=== PATIENT | female | born 1990 ===

== ENCOUNTER → 2018-02-02 17:08 | Emergency (ER) | payer OTHER ==
[2018-02-02 21:34] LABS: ABS Basophils 0.1 10^3/ul (0-0.2); ABS Eosinophils 0.1 10^3/ul (0-0.6); ABS Lymphocytes 2.7 10^3/ul (1.0-4.8); ABS Monocytes 0.7 10^3/ul (0-0.8); ABS Neutrophils 6.2 10^3/ul (1.5-7.7); ABS Nucleated RBC 0 10^3/ul; Eosinophil % 1.1 %; Hematocrit 41 % (35-47); Hemoglobin 13.3 g/dl (12.0-16.0); Lymphocyte % 27.4 %; Mean Corpuscular HGB Conc 33 g/dl (31-36); Mean Corpuscular Hemoglobin 29 pg (27-31); Mean Corpuscular Volume 88 fL (80-97); Mean Platelet Volume 7.7 fL (7.4-10.4); Nucleated Red Blood Cells % 0.1; Platelet Count 277 10^3/ul (150-450); Red Blood Count 4.62 10^6/ul (4.00-5.40); Red Cell Distribution Width 15 % (10.5-15); White Blood Count 9.7 10^3/ul (3.5-10.8)
[2018-02-02 21:42] LABS: INR 0.99 (0.77-1.02)
--- NOTE | 2018-02-02 22:08 | ED ---
GI/ HPI - HPI Summary HPI Summary: 27-year-old female presents with possible ecoptic. her LMP was December 21. has vaginal cramping past couple days. She denies any bleeding. No abdominal vaginal discharge. No urinary symptoms. She admits to some nausea but no vomiting. No fevers. No diarrhea or constipation. She states that she has multiple ultrasounds done due to not wanting the but they're unable to find sack so was sent here to rule out ectopic. She states she doesn' t have an appointment for [facility] till next week. She is leaving to go out of the country next week. - History of Current Complaint Chief Complaint: EDOBProblems Time Seen by Provider: 02/02/18 21:28 Stated Complaint: OB ISSUE Pain Intensity: 2 - Allergy/Home Medications Allergies/Adverse Reactions: Allergies Allergy/AdvReac Type Severity Reaction Status Date / Time No Known Allergies Allergy Verified 02/02/18 17:14 PMH/Surg Hx/FS Hx/Imm Hx Endocrine/Hematology History: Denies: Hx Anticoagulant Therapy Respiratory History: Denies: Hx Asthma Infectious Disease History: No Infectious Disease History: Denies: Traveled Outside the [place] in Last 30 Days - Family History Known Family History: Positive: Non-Contributory - Social History Alcohol Use: None Substance Use Type: Reports: None Smoking Status (MU): Never Smoked Tobacco Review of Systems Negative: Fever Negative: Chest Pain Negative: Shortness Of Breath Positive: Abdominal Pain, Nausea. Negative: Vomiting All Other Systems Reviewed And Are Negative: Yes Physical Exam Triage Information Reviewed: Yes Vital Signs On Initial Exam: Initial Vitals Temp Pulse Resp BP Pulse Ox 98.9 F 93 16 139/94 100 02/02/18 17:11 02/02/18 17:11 02/02/18 17:11 02/02/18 17:11 02/02/18 17:11 Vital Signs Reviewed: Yes Appearance: Positive: Well-Appearing Skin: Positive: Warm, Dry Head/Face: Positive: Normal Head/Face Inspection Eyes: Positive: Normal, Conjunctiva Clear ENT: Positive: Pharynx normal Respiratory/Lung Sounds: Positive: Clear to Auscultation, Breath Sounds Present Cardiovascular: Positive: Normal, RRR Abdomen Description: Positive: Nontender, Soft Bowel Sounds: Positive: Present Musculoskeletal: Positive: Normal Neurological: Positive: Normal Psychiatric: Positive: Normal Diagnostics - Vital Signs Vital Signs Temp Pulse Resp BP Pulse Ox 02/02/18 19:03 99.1 F 101 18 122/75 99 02/02/18 17:11 98.9 F 93 16 139/94 100 - Laboratory Lab Results: Lab Results 02/02/18 02/02/18 02/02/18 Range/Units 21:22 21:22 21:22 WBC 9.7 (3.5-10.8) 10^3/ul RBC 4.62 (4.00-5.40) 10^6/ul Hgb 13.3 (12.0-16.0) g/dl Hct 41 (35-47) % MCV 88 (80-97) fL MCH 29 (27-31) pg MCHC 33 (31-36) g/dl RDW 15 (10.5-15) % Plt Count 277 (150-450) 10^3/ul MPV 7.7 (7.4-10.4) fL Neut % (Auto) 63.6 % Lymph % (Auto) 27.4 % [place] % (Auto) 7.3 % Eos % (Auto) 1.1 % Baso % (Auto) 0.6 % Absolute Neuts (auto) 6.2 (1.5-7.7) 10^3/ul Absolute Lymphs (auto) 2.7 (1.0-4.8) 10^3/ul Absolute Monos (auto) 0.7 (0-0.8) 10^3/ul Absolute Eos (auto) 0.1 (0-0.6) 10^3/ul Absolute Basos (auto) 0.1 (0-0.2) 10^3/ul Absolute Nucleated RBC 0 10^3/ul Nucleated RBC % 0.1 INR (Anticoag Therapy) 0.99 (0.77-1.02) APTT 34.0 (26.0-36.3) seconds Sodium 136 (135-145) mmol/L Potassium 3.9 (3.5-5.0) mmol/L Chloride 105 (101-111) mmol/L Carbon Dioxide 26 (22-32) mmol/L Anion Gap 5 (2-11) mmol/L BUN 7 (6-24) mg/dL Creatinine 0.68 (0.51-0.95) mg/dL Est GFR ( Amer) 124.7 (>60) Est GFR (Non-Af Amer) 103.0 (>60) BUN/Creatinine Ratio 10.3 (8-20) Glucose 74 (70-100) mg/dL Calcium 9.3 (8.6-10.3) mg/dL Total Bilirubin 0.40 (0.2-1.0) mg/dL AST 14 (13-39) U/L ALT 10 (7-52) U/L Alkaline Phosphatase 46 (34-104) U/L Total Protein 7.0 (6.4-8.9) g/dL Albumin 4.6 (3.2-5.2) g/dL Globulin 2.4 (2-4) g/dL Albumin/Globulin Ratio 1.9 (1-3) Beta HCG, Quant 772.28 mIU/mL Blood Type 02/02/18 Range/Units 21:22 WBC (3.5-10.8) 10^3/ul RBC (4.00-5.40) 10^6/ul Hgb (12.0-16.0) g/dl Hct (35-47) % MCV (80-97) fL MCH (27-31) pg MCHC (31-36) g/dl RDW (10.5-15) % Plt Count (150-450) 10^3/ul MPV (7.4-10.4) fL Neut % (Auto) % Lymph % (Auto) % [place] % (Auto) % Eos % (Auto) % Baso % (Auto) % Absolute Neuts (auto) (1.5-7.7) 10^3/ul Absolute Lymphs (auto) (1.0-4.8) 10^3/ul Absolute Monos (auto) (0-0.8) 10^3/ul Absolute Eos (auto) (0-0.6) 10^3/ul Absolute Basos (auto) (0-0.2) 10^3/ul Absolute Nucleated RBC 10^3/ul Nucleated RBC % INR (Anticoag Therapy) (0.77-1.02) APTT (26.0-36.3) seconds Sodium (135-145) mmol/L Potassium (3.5-5.0) mmol/L Chloride (101-111) mmol/L Carbon Dioxide (22-32) mmol/L Anion Gap (2-11) mmol/L BUN (6-24) mg/dL Creatinine (0.51-0.95) mg/dL Est GFR ( Amer) (>60) Est GFR (Non-Af Amer) (>60) BUN/Creatinine Ratio (8-20) Glucose (70-100) mg/dL Calcium (8.6-10.3) mg/dL Total Bilirubin (0.2-1.0) mg/dL AST (13-39) U/L ALT (7-52) U/L Alkaline Phosphatase (34-104) U/L Total Protein (6.4-8.9) g/dL Albumin (3.2-5.2) g/dL Globulin (2-4) g/dL Albumin/Globulin Ratio (1-3) Beta HCG, Quant mIU/mL Blood Type A Positive Result Diagrams: 02/02/18 21:22 02/02/18 21:22 Lab Statement: Any lab studies that have been ordered have been reviewed, and results considered in the medical decision making process. - Ultrasound No standard instances Ultrasound Interpretation Completed By: Radiologist Summary of Ultrasound Findings: IMPRESSION: Probable very early intrauterine of about nearly 5 weeks. pole cardiac activity and are yet to be visualized. No suspicious adnexal masses or free fluid. Correlation with beta-hCG levels and follow up are recommended as an ectopic is. still in the differential. GIGU Course/Dx - Course Course Of Treatment: 27-year-old female presents with possible ecoptic. her LMP was December 21. has vaginal cramping past couple days. She denies any bleeding. No abdominal vaginal discharge. No urinary symptoms. She admits to some nausea but no vomiting. No fevers. No diarrhea or constipation. She states that she has multiple ultrasounds done due to not wanting the but they're unable to find sack so was sent here to rule out ectopic. She states she doesn't have an appointment for [facility]. She is leaving to go out of the country next week. On exam abdomen soft nontender. HCG is 778. Ultrasound shows likely an intrauterine that is early. Told to follow [facility] with [facility]. gave nausea medication. Patient understands agrees with plan. - Diagnoses Differential Diagnoses - Female: Ectopic , , Urinary Tract Infection Provider Diagnoses: Discharge - Sign-Out/Discharge Documenting (check all that apply): Patient Departure - Discharge Plan Condition: Good Disposition: HOME Prescriptions: Metoclopramide TAB* [Reglan TAB*] 5 mg PO Q6H PRN #20 tab PRN Reason: Nausea Vitamin TAB* 1 tab PO DAILY #30 tab Patient Education Materials: (ED) Referrals: No Primary Care Phys,NOPCP [facility] - Additional Instructions[facility] tyen[facility] every 6 hours as needed for pain Take reglan every 6 hours as needed for nausea Return to ED if develop any new or worsening symptoms - Billing Disposition and Condition Condition: GOOD Disposition: Home
[2018-02-02 22:21] VITALS: BP 115/62
== END | disposition home or self-care (01) ==
LOC: ED 17:08
DX: Z32.01 Encounter for pregnancy test, result positive (principal)
CPT/HCPCS: 36415; 76817; 80053; 84702; 85025; 85610; 85730; 86900; 86901; 99282

== ENCOUNTER 2018-05-19 19:29 | Emergency (ER) | payer OTHER ==
[2018-05-19 19:44] VITALS: BP 114/82
--- NOTE | 2018-05-19 20:12 | UC ---
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 STATES VISUAL SKAGGS WENT BLACK MOMENTARILY AND NOW ARE UNIFORMLY BLURRY. STATES SHE IS UNABLE TO FOCUS HER VISION. REPORTS A FAMILY HISTORY OF RETINAL ARTERY OCCLUSION. HAS A PERSONAL HISTORY OF WHAT SOUND LIKE TENSION HEADACHES THAT OCCUR EVERY FEW WEEKS. NO HISTORY OF MIGRAINES OR VISUAL DISTURBANCES WITH HER HEADACHES. - History of Current Complaint Chief Complaint: UCEye Stated Complaint: BLURRED VISION Time Seen by Provider: 05/19/18 19:46 Hx Obtained From: Patient Hx Last Menstrual Period: [id number] Onset/Duration: Sudden Onset, Lasting Minutes, Still Present Timing: Constant Severity Initially: Moderate Severity Currently: Moderate Pain Intensity: 2 Pain Scale Used: 0-10 Numeric Aggravating Factor(s): Nothing Alleviating Factor(s): Nothing Associated Signs And Symptoms: Positive: Vision Impairment Right, Vision Impairment Left. Negative: Drainage (Clear) - Allergies/Home Medications Allergies/Adverse Reactions: Allergies Allergy/AdvReac Type Severity Reaction Status Date / Time No Known Allergies Allergy Verified 05/19/18 19:44 Home Medications: Home Medications Amoxicillin PO (*) [Amoxicillin 875 MG (*)] 875 mg PO BID 05/19/18 [History Confirmed 05/19/18] PMH/Surg Hx/FS Hx/Imm Hx Previously Healthy: Yes Other History Of: Negative For: Anticoagulant Therapy - Surgical History Surgical History: None - Family History Family History: RETINAL ARTERY OCCLUSION - Social History Alcohol Use: None Substance Use Type: None Smoking Status (MU): Never Smoked Tobacco Review of Systems All Other Systems Reviewed And Are Negative: Yes Constitutional: Positive: Negative Eyes: Positive: Blurred Vision Respiratory: Positive: Negative Cardiovascular: Positive: Negative Gastrointestinal: Positive: Negative Neurological: Positive: Headache Physical Exam Triage Information Reviewed: Yes Appearance: Well-Appearing, No Pain Distress, Well-Nourished Vital Signs: Initial Vital Signs Temp 99.0 F 05/19/18 19:40 Pulse 63 05/19/18 19:40 Resp 16 05/19/18 19:40 BP 114/82 05/19/18 19:40 Pulse Ox 100 05/19/18 19:40 Vital Signs Reviewed: Yes Eyes: Positive: Conjunctiva Clear, Other: - PERRL, EOMI ENT: Positive: Hearing grossly normal, Pharynx normal, TMs normal Neck: Positive: Supple, Nontender, No Lymphadenopathy Respiratory Exam: Normal Cardiovascular Exam: Normal Abdomen Description: Positive: Soft Musculoskeletal: Positive: No Edema Neurological: Positive: Alert, Other: - CN II-XII GROSSLY INTACT BILATERALLY. RAPID ALTERNATING MOVEMENTS INTACT. NEG PRONATOR DRIFT. NEG ROMBERG. 5/5 STRENGTH. HEEL TO PEGUERO INTACT BILATERALLY. TANDEM GAIT INTACT. FINGER TO NOSE INTACT. 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 REPORTS PERSISTENT BLURRY VISION AND HEADACHE. HAS A FAMILY HISTORY OF RETINAL ARTERY OCCLUSION AND IS VERY CONCERNED ABOUT THIS. TO [facility] [place] ER FOR FURTHER EVALUATION. PATIENT WILL GO BY PRIVATE CAR. PT OFFERED TRANSPORT TO THE ED BY AMBULANCE BUT DECLINES. ADVISED THAT BY NOT TRAVELING IN A MONITORED SETTING SHE COULD BE RISKING WORSENING OF HER CONDITION THAT COULD POSE A THREAT TO HER LIFE, HEALTH AND MEDICAL SAFETY. SHE VERBALIZES UNDERSTANDING AND CONTINUES TO DECLINE AMBULANCE TRANSFER. - Differential Dx/Diagnosis Provider Diagnosis: Vision loss, bilateral, Headache Discharge - Sign-Out/Discharge Documenting (check all that apply): Patient Departure All imaging exams completed and their final reports reviewed: No Studies - Discharge Plan Condition: Stable Disposition: TRANS [facility]HER [facility] Patient Education Materials: Blurred Vision (ED), General Headache (ED) Referrals: No Primary Care Phys,NOPCP [Primary Care Provider] - Additional Instructions: GO DIRECTLY TO THE [facility] [place] ED FROM HERE FOR FURTHER EVALUATION. YOU HAVE DECLINED TRANSFER TO THE ED BY AMBULANCE. BE ADVISED THAT BY NOT TRAVELING IN A MONITORED SETTING YOU COULD BE RISKING WORSENING OF YOUR CONDITION THAT COULD POSE A THREAT TO YOUR LIFE, HEALTH AND MEDICAL SAFETY. - Billing Disposition and Condition Condition: STABLE Disposition: Trans Higher Lvl of Care Fac
== END 2018-05-19 20:00 | disposition short-term general hospital (02) ==
LOC: UCEAST 19:29
DX: H54.3 Unqualified visual loss, both eyes (principal); R51 Headache; Z83.518 Family history of other specified eye disorder
CPT/HCPCS: 99212; G0463

== ENCOUNTER 2019-04-23 12:18 | Emergency (ER) | payer OTHER ==
--- OUTSIDE RECORDS SUMMARY | 2019-04-23 12:22 | XMS REPORT | Summary of Care ---
:1990 Author Organization [facility] Address [address] [place] [address] Care Team Providers Name Role Phone Shyam Goff Primary Care Provider Reason for Visit Reason Comments New Patient Check Up physical Medication Check pt would like to change her Vanlafaxine Encounter Details Date Type Department Care Team Description 03/22/2019 Office Visit [facility] Shyam Goff, Anxiety and depression (Primary Dx); [facility] [address] [place] [address] [place] [address] [phone] Allergies No Known Allergiesdocumented as of this encounter (statuses as of 03/25/2019) Medications Medication Sig Dispensed Refills Start End Date Status Date Levonorgestrel by Intrauterine 0 Active (MIRENA, 52 MG,) route. 20 MCG/24HR Intrauterine IUD hydrOXYzine HCL Take 1 Tab by 30 Tab 0 Active (ATARAX) 10 MG mouth EVERY 9 Oral BEDTIME TabIndications: NEEDED Anxiety (anxiety). venlafaxine Take 1 Cap by 90 Cap 1 Active (EFFEXOR XR) 75 MG mouth DAILY. 0 Oral CAPSULE SR 24 HRIndications: Anxiety busPIRone HCl 7.5 Take 1 Tab by 120 Tab 0 Active MG Oral mouth TWICE 0 TabIndications: DAILY. Anxiety and depression venlafaxine Take 1 Cap by 90 Cap 1 03/22/19 Discontinued (EFFEXOR XR) 37.5 mouth DAILY. 9 20 (Other) MG Oral CAPSULE SR Start with 37.5 24 HRIndications: mg and 2 week Anxiety later add effexor 75 mg venlafaxine Take 1 Cap by 90 Cap 1 03/22/19 Discontinued (EFFEXOR XR) 75 MG mouth DAILY. 9 20 (Other) Oral CAPSULE SR 24 HRIndications: Anxiety venlafaxine Take 1 Cap by 90 Cap 1 03/22/19 Discontinued (EFFEXOR XR) 37.5 mouth DAILY. 0 20 (Other) MG Oral CAPSULE SR Start with 37.5 24 HRIndications: mg and 2 week Anxiety later add effexor 75 mg documented as of this encounter (statuses as of 03/25/2019) Active Problems Problem Noted Date Anxiety and depression 06/19/2017 documented as of this encounter (statuses as of 03/25/2019) Social History Tobacco Use Types Packs/Day Years Used Date Former Smoker Quit: 06/09/2016 Smokeless Tobacco: Never Used Alcohol Use Drinks/Week oz/Week Comments Yes Rarely Sex Assigned at Date Recorded Not on file Job Start Date Occupation Industry Not on file Not on file Not on file Travel History Travel Start Travel End No recent travel history available. documented as of this encounter Last Filed Vital Signs Vital Sign Reading Time Taken Comments Blood Pressure 118/86 03/22/2019 4:02 PM EST Pulse 67 03/22/2019 4:02 PM EST Temperature 37.3 03/22/2019 4:02 PM EST C (99.1 F) Respiratory Rate - - Oxygen Saturation 100% 03/22/2019 4:02 PM EST Inhaled Oxygen Concentration - - Weight 62.6 kg (138 lb) 03/22/2019 4:02 PM EST Height 170.2 cm (5' 7") 03/22/2019 4:02 PM EST Body Mass Index 21.61 03/22/2019 4:02 PM EST documented in this encounter Patient Instructions Patient InstructionsShyam Goff PA - 03/22/2019 4:00 PM ESTStart Buspirone twice per day. See me in 8 weeks. If you ever have thoughts of hurting yourself or others or have feelings of losing control, seek emergency room care immediately by ambulance. National Suicide Prevention Lifeline 4: 31 PM EST documented in this encounter Progress Notes Shyam Goff PA - 03/22/2019 4:00 PM EST PATIENT: Mike Norton : 1990 DATE OF SERVICE: 03/22/2019 CHIEF COMPLAINT: Chief Complaint Patient presents with New Patient Check Up physical Medication Check pt would like to change her Vanlafaxine Subjective HISTORY OF PRESENT ILLNESS: Mike Norton is a 28-y.o. female. Jigna presents to the office to establish with me and discuss medications. She currently complains of increased depression. She complains of depressed mood, feelings of worthlessness / guilt and hopelessness. Onset was approximately a few months ago, gradually worsening since that time. She denies current suicidal and homicidal plan or intent. Family history significant for nothing. Possible organic causes contributing are: none. Risk factors: previous episode of depression. Previous treatment includes SSRI and individual therapy. She complains of the following side effects from the treatment: none. She is currently taking hydroxyzine for sleep and Effexor for anxiety and depression. She is compliant with medications. Past Medical History: Diagnosis Date Anxiety Depression PCOS (polycystic ovarian syndrome) Family History Problem Relation Age of Onset Heart Father Cancer Maternal Grandmother Stomach Cancer Paternal Uncle Lung Cancer Maternal Uncle Lung Stroke Paternal Grandmother Current Outpatient Medications Medication Sig busPIRone HCl 7.5 MG Oral Tab Take 1 Tab by mouth TWICE DAILY. hydrOXYzine HCL (ATARAX) 10 MG Oral Tab Take 1 Tab by mouth EVERY BEDTIME NEEDED (anxiety). Levonorgestrel (MIRENA, 52 MG,) 20 MCG/24HR Intrauterine IUD by Intrauterine route. venlafaxine (EFFEXOR XR) 75 MG Oral CAPSULE SR 24 HR Take 1 Cap by mouth DAILY. No current facility-administered medications for this visit. No Known Allergies Social History Socioeconomic History Marital status: Single Spouse name: Not on file Number of children: Not on file Years of education: Not on file Highest education level: Not on file Occupational History Not on file Social Needs Financial resource strain: Not on file Food insecurity Worry: Not on file Inability: Not on file Transportation needs Medical: Not on file Non-medical: Not on file Tobacco Use Smoking status: Former Smoker Last attempt to quit: 06/09/2016 Years since quittin.7 Smokeless tobacco: Never Used Substance and Sexual Activity Alcohol use: Yes Comment: Rarely Drug use: No Sexual activity: Never Lifestyle Physical activity Days per week: Not on file Minutes per session: Not on file Stress: Not on file Relationships Social connections Talks on phone: Not on file Gets together: Not on file Attends buddhist service: Not on file Active member of club or organization: Not on file Attends meetings of clubs or organizations: Not on file Relationship status: Not on file Intimate partner violence Fear of current or ex partner: Not on file Emotionally abused: Not on file Physically abused: Not on file Forced sexual activity: Not on file Other Topics Concern Back Care Not Asked Bike Helmet Not Asked Blood Transfusions Not Asked Caffeine Concern Not Asked Exercise Not Asked Hobby Hazards Not Asked International Travel Not Asked Service Not Asked Occupational Exposure Not Asked Seat Belt Not Asked Self-Exams Not Asked Sleep Concern Not Asked Special Diet Not Asked Stress Concern Not Asked Weight Concern Not Asked Social History Narrative Work: coordinator event REVIEW OF SYSTEMS: Review of Systems Constitutional: Negative for chills, fever, malaise/fatigue and weight loss. HENT: Negative for congestion, ear pain, hearing loss, sore throat and tinnitus. Eyes: Negative for blurred vision, double vision and photophobia. Respiratory: Negative for cough, sputum production and shortness of breath. Cardiovascular: Negative for chest pain, palpitations, orthopnea and leg swelling. Gastrointestinal: Negative for abdominal pain, blood in stool, diarrhea and heartburn. Genitourinary: Negative for dysuria, flank pain and hematuria. Musculoskeletal: Negative for falls, joint pain and myalgias. Skin: Negative for itching and rash. Neurological: Negative for dizziness, sensory change, speech change, loss of consciousness and weakness. Endo/Heme/Allergies: Negative for environmental allergies and polydipsia. Does not bruise/bleed easily. Psychiatric/Behavioral: Positive for depression. Negative for substance abuse and suicidal ideas. The patient is nervous/anxious and has insomnia. Patient has history of suicidal thoughts, but none at this time. Objective PHYSICAL EXAM: VITALS: BP 118/86 (BP Location: Right arm, Patient Position: Sitting) | Pulse 67 | Temp 99.1 F (37.3 C) (Tympanic) | Ht 5' 7" (1.702 m) | Wt 138 lb (62.6 kg) | SpO2 100% | BMI 21.61 kg/m Body mass index is 21.61 kg/m . Physical Exam Vitals signs and nursing note reviewed. Constitutional: General: She is not in acute distress. Appearance: She is not ill-appearing or diaphoretic. HENT: Head: Normocephalic and atraumatic. Right Ear: Tympanic membrane, ear canal and external ear normal. Left Ear: Tympanic membrane, ear canal and external ear normal. Nose: No congestion or rhinorrhea. Mouth/Throat: Mouth: Mucous membranes are moist. Pharynx: No oropharyngeal exudate or posterior oropharyngeal erythema. Eyes: Pupils: Pupils are equal, round, and reactive to light. Neck: Musculoskeletal: Normal range of motion and neck supple. No muscular tenderness. Cardiovascular: Rate and Rhythm: Normal rate and regular rhythm. Pulses: Normal pulses. Heart sounds: No murmur. No friction rub. No gallop. Pulmonary: Effort: No respiratory distress. Breath sounds: No wheezing, rhonchi or rales. Abdominal: General: Abdomen is flat. Bowel sounds are normal. Palpations: Abdomen is soft. Tenderness: There is no abdominal tenderness. There is no right CVA tenderness, left CVA tenderness, guarding or rebound. Musculoskeletal: Normal range of motion. General: No swelling or tenderness. Lymphadenopathy: Cervical: No cervical adenopathy. Skin: General: Skin is warm and dry. Findings: No lesion or rash. Neurological: General: No focal deficit present. Mental Status: She is alert and oriented to person, place, and time. Cranial Nerves: No cranial nerve deficit. Motor: No weakness. Coordination: Coordination normal. Deep Tendon Reflexes: Reflexes normal. Psychiatric: Comments: Patient is quiet with somewhat flattened affect. ASSESSMENT / IMPRESSION: ICD-9-CM ICD-10-CM 1. Anxiety and depression 300.00 F41.9 busPIRone HCl 7.5 MG Oral Tab 311 F32.9 2. Anxiety 300.00 F41.9 venlafaxine (EFFEXOR XR) 75 MG Oral CAPSULE SR 24 HR DISCONTINUED: venlafaxine (EFFEXOR XR) 37.5 MG Oral CAPSULE SR 24 HR Patient is going to take buspar three times per day for depression not treated with Effexor, and will use buspirone as an additive to her current treatment plan. Continue to follow up with counseling, and I would like to see her again in one month to discuss how her medications are helping. I spent 45 minutes with the patient, greater than half of this time in direct face to face counseling regarding the condition and the plan of care. Author: [place] 03/25/2019 08:50 documented in this encounter Plan of Treatment Date Type Specialty Care Team Description 05/20/2019 Office Visit Internal Medicine Shyam Goff PA [address] [id number] [phone] Health Maintenance Due Date Last Done Comments DEPRESSION SCREENING 05/22/2019 05/21/2018, 05/21/2018 DTaP/Tdap/Td Vaccines (1 - 06/16/2019 Postponed from 2000 Tdap) (Other) INFLUENZA VACCINE (#1) 2019 Postponed from 11/04/2018 (Other) PAP SMEAR 08/01/2020 08/01/2017 HEPATITIS A IMMUNIZATION Aged Out No longer eligible based SERIES on patient's age to complete this topic HPV IMMUNIZATION SERIES Aged Out No longer eligible based on patient's age to complete this topic MENINGOCOCCAL VACCINE IMM Aged Out No longer eligible based on patient's age to complete this topic PNEUMOCOCCAL 0-64 YRS Aged Out No longer eligible based on patient's age to complete this topic documented as of this encounter Goals Goal Patient Goal Associated Recent Patient-Stated? Author Type Problems Progress Depression Depression 17 No Basim Frias screen (PHQ-9) (05/21/2018 DO Annika total score < 5 8:35 AM EDT) Note: This is an individualized treatment (depression) goal for Kayatayerufino Arthur-Morganid: Displayed above is your goal for a depression screening (PHQ-9) score that would indicate good control of your depression. Keep a regular sleep schedule Lifestyle Basim Luis DO Note: This is an individualized lifestyle goal for Miguelrufino Arthur-Hamid: Please maintain a regular sleep schedule. This may help with some symptoms of depression. Take all prescribed medications as directed Self-management Basim Luis DO Note: This is an individualized self-management goal for Mike Norton: Please take all prescribed medications as directed. 1. Do not skip doses. If you cannot afford your medications, talk with your doctor. 2. Use a pill reminder system such as a pill box if needed. Your pharmacist can help you with this. 3. Contact your Pharmacy 5 days before your medication runs out. If you cannot take your medications for any reasons, talk with your doctor. 4. Please bring all of your medication bottles and inhalers (or a list of all your medications/inhalers) with you to every visit. Potential barriers to meeting all of your care plan goals will continue to be addressed on an ongoing basis. documented as of this encounter Results Not on filedocumented in this encounter Visit Diagnoses Diagnosis Anxiety Anxiety state, unspecified Anxiety and depression Dysthymic disorder documented in this encounter Insurance Payer Benefit Plan / Subscriber ID Effective Dates Phone Address Type Group [employer] xxxxxxxxxx 2017-Present [employer] documented as of this encounter
[2019-04-23 12:34] VITALS: BP 92/61
--- NOTE | 2019-04-23 13:59 | UC ---
Abdominal Pain Female HPI - HPI Summary HPI Summary: PATIENT HAS HAD LOW BACK PAIN FOR SEVERAL WEEKS. FOR THE PAST FEW DAYS HAS HAD ABD PAIN, HOT FLASHES AND CHILLS BUT NO DOCUMENTED FEVER. TODAY DEVELOPED NAUSEA AND VOMITING. IS CURRENTLY ON MENSES. DENIES ANY SEXUAL ACTIVITY FOR OVER 2 MONTHS. HAS IUD. - History of Current Complaint Chief Complaint: UCGeneralIllness Stated Complaint: ABDOMINAL PAIN Time Seen by Provider: 04/23/19 13:38 Hx Obtained From: Patient Hx Last Menstrual Period: 04/19/19 Onset/Duration: Gradual Onset, Lasting Weeks, Still Present Timing: Constant Severity Initially: Moderate Severity Currently: Moderate Pain Intensity: 7 Pain Scale Used: 0-10 Numeric Location: Diffuse Radiates: Yes Radiates to: Flank Character: Aching, Colicy Aggravating Factor(s): Nothing Alleviating Factor(s): Nothing Associated Signs and Symptoms: Positive: Fever, Back Pain, Nausea, Vomiting. Negative: Urinary Symptoms Allergies/Adverse Reactions: Allergies Allergy/AdvReac Type Severity Reaction Status Date / Time No Known Allergies Allergy Verified 04/23/19 12:33 Home Medications: Home Medications Venlafaxine EXT RELEASE CAP* [Effexor Xr CAP*] 125 mg PO DAILY WITH MEAL [History Confirmed 04/23/19] buPROPion HCL [Bupropion HCl Sr] 150 mg PO DAILY WITH MEAL 04/23/19 [History Confirmed 04/23/19] PMH/Surg Hx/FS Hx/Imm Hx Psychological History: Anxiety, Depression Other History Of: Negative For: Anticoagulant Therapy - Surgical History Surgical History: None - Family History Family History: RETINAL ARTERY OCCLUSION - Social History Alcohol Use: Weekly Substance Use Type: None Smoking Status (MU): Never Smoked Tobacco Review of Systems All Other Systems Reviewed And Are Negative: Yes Constitutional: Positive: Fever, Chills ENT: Positive: Negative Respiratory: Positive: Negative Cardiovascular: Positive: Negative Gastrointestinal: Positive: Vomiting, Nausea Genitourinary: Positive: Negative Musculoskeletal: Negative: Myalgia Neurological/Mental Status: Negative: Headache Physical Exam Triage Information Reviewed: Yes Appearance: Well-Nourished, Pain Distress - MILD Vital Signs: Initial Vital Signs Temp 99.0 F 04/23/19 12:30 Pulse 110 04/23/19 12:30 Resp 18 04/23/19 12:30 BP 92/61 04/23/19 12:30 Pulse Ox 100 04/23/19 12:30 Laboratory Tests 04/23/19 04/23/19 13:10 13:12 POC Urine Color Yellow POC Urine Clarity Clear POC Urine pH 5.5 POC Ur Specif [place] >= 1.030 POC Urine Protein Trace POC Ur Glucose (UA) Negative POC Urine Ketones 3+ A POC Urine Blood 3+ A POC Urine Nitrite Negative POC Urine Bilirubin 1+ A POC Urine Urobilinogen 0.2 POC U Leukocyte Esteras Negative POC Ur Test Negative Vital Signs Reviewed: Yes Eyes: Positive: Conjunctiva Clear ENT: Positive: Hearing grossly normal Neck: Positive: Supple Respiratory Exam: Normal Cardiovascular: Positive: Tachycardia Abdomen Description: Positive: Soft, CVA Tenderness (R) - EQUIVOCAL, Other: - MILDLY TENDER DIFFUSELY, WORST RLQ. NO REBOUND OR RIGIDITY. Negative: CVA Tenderness (L), Distended, Guarding Musculoskeletal: Positive: No Edema Neurological: Positive: Alert Psychological: Positive: Age Appropriate Behavior Skin: Negative: Rashes Abd Pain Female Course/Dx - Course Course Of Treatment: CT SCAN OF ABDOMEN AND PELVIS WITHOUT CONTRAST TODAY UNREMARKABLE. URINE DIP WITH A LARGE AMOUNT OF BLOOD HOWEVER PATIENT IS CURRENTLY ON HER MENSES. SHE DENIES ANY RECENT SEXUAL ACTIVITY AND URINE ALSO NEGATIVE. PATIENT REPORTS WORSENING ABDOMINAL PAIN AND STATES THAT EVERY TIME SHE STANDS UP SHE FEELS THAT SHE WILL PASS OUT. FOR THE PAST 12-24 HOURS HAS NOT BEEN ABLE TO KEEP ANYTHING DOWN. DRANK A BOTTLE OF WATER HERE IN THE UC AND IMMEDIATELY THREW IT UP. PATIENT REQUIRES A HIGHER LEVEL OF SERVICE THAN WHAT IS AVAILABLE IN THE URGENT CARE. TO [facility] [place] [facility] BY AMBULANCE. - Differential Dx/Diagnosis Provider Diagnosis: Abdominal pain - Physician Notification/Consults Discussed Care of Patient With: Tez Moore - TO [facility] [place] [facility] BY AMBULANCE Time Discussed With Above Provider: 14:30 Instructed by Provider To: MD Will See In ED Discharge ED - Sign-Out/Discharge Documenting (check all that apply): Patient Departure All imaging exams completed and their final reports reviewed: Yes - Discharge Plan Condition: Stable Disposition: TRANS HIGHER LVL OF CARE FAC Referrals: No Primary Care Phys,NOPCP [Primary Care Provider] - - Billing Disposition and Condition Condition: STABLE Disposition: Trans Higher Lvl of Care Fac
[2019-04-23] MEDS ORDERED: Ondansetron INJ* 2 MG/ML VIAL IV ONE (14:23)
[2019-04-23] MEDS: NS 0.9% 1000 ML** 1,000 ML IV ONE (14:32)
== END 2019-04-23 14:30 | disposition short-term general hospital (02) ==
LOC: UCEAST 12:18
DX: R10.9 Unspecified abdominal pain (principal); M54.5 Low back pain; R50.9 Fever, unspecified; R11.2 Nausea with vomiting, unspecified; F41.9 Anxiety disorder, unspecified; F32.9 Major depressive disorder, single episode, unspecified; Z79.899 Other long term (current) drug therapy
CPT/HCPCS: 74176; 81003; 84702; 99213; G0463; J2405

== ENCOUNTER 2019-04-23 15:03 | Emergency (ER) | payer OTHER ==
--- NOTE | 2019-04-23 15:38 | ED ---
Abdominal Pain/Female - HPI Summary HPI Summary: Patient is a 28 y/o F presenting to the ED via EMS for a chief complaint of mid- suprapubic abdominal pain. Patient states that around 03:00 on 04/23/19, she began to have abdominal pain, nausea, vomiting, and diarrhea. Patient reports having 5 episodes of vomiting. She also reports dizziness and a fever. She states she also had a fever on 04/18/19 and lower back pain for the last month. Patient denies dysuria, hematuria, or blood in the stool. Patient denies similar abdominal pain in the past or contact with someone that has similar symptoms. She denies taking any medications for her symptoms because she could not "keep anything down." Previously, she was seen at Urgent Care and sent to [facility] to rule out possible kidney stones. She admits weekly alcohol use, last 2 days ago, but denies tobacco or alcohol use. Patients medication reviewed this visit. - History of Current Complaint Chief Complaint: EDAbdPain Stated Complaint: ABDOMINAL AND BACK PAIN PER EMS Time Seen by Provider: 04/23/19 15:21 Hx Obtained From: Patient Hx Last Menstrual Period: 04/19/19 Onset/Duration: Sudden Onset, Still Present Timing: Constant Severity Initially: Mild Severity Currently: Mild Pain Intensity: 3 Pain Scale Used: 0-10 Numeric Location: Suprapubic Radiates: No Aggravating Factor(s): Nothing Alleviating Factor(s): Nothing Associated Signs and Symptoms: Positive: Fever - In vitals, 99.9 F, Dizzy, Back Pain - Lower, Nausea, Vomiting, Diarrhea. Negative: Blood in Stool, Urinary Symptoms - Negavtive dysuria or hematuria Allergies/Adverse Reactions: Allergies Allergy/AdvReac Type Severity Reaction Status Date / Time No Known Allergies Allergy Verified 04/23/19 12:33 Home Medications: Home Medications Ondansetron ODT TAB* [Zofran 4 MG Odt TAB*] 4 mg PO Q4H PRN #10 tab.odt [Rx] Venlafaxine EXT RELEASE CAP* [Effexor Xr CAP*] 75 mg PO DAILY 04/23/19 [History Confirmed 04/23/19] busPIRone TAB* [Buspar TAB*] 7.5 mg PO BID 04/23/19 [History Confirmed 04/23/19] PMH/Surg Hx/FS Hx/Imm Hx Previously Healthy: Yes Endocrine/Hematology History: Denies: Hx Anticoagulant Therapy, Hx Diabetes, Hx Thyroid Disease Cardiovascular History: Denies: Hx Hypertension Respiratory History: Denies: Hx Asthma, Hx Chronic Obstructive Pulmonary Disease (COPD) GI History: Denies: Hx Ulcer Sensory History: Denies: Hx Legally Blind, Hx Deafness Opthamlomology History: Denies: Hx Legally Blind EENT History: Denies: Hx Deafness Psychiatric History: Reports: Hx Depression - Surgical History Surgical History: Yes Surgery Procedure, Year, and Place: Tonsillectomy Infectious Disease History: No Infectious Disease History: Denies: Hx Hepatitis, Hx Human Immunodeficiency Virus (HIV), Traveled Outside the [place] in Last 30 Days - Family History Known Family History: Positive: Other, Non-Contributory Negative: Renal Disease Family History: RETINAL ARTERY OCCLUSION - Social History Occupation: Employed Full-time Lives: With Family Alcohol Use: Weekly Hx Substance Use: No Substance Use Type: Reports: None Hx Tobacco Use: No Smoking Status (MU): Never Smoked Tobacco Review of Systems Positive: Fever - In vitals, 99.9 F Positive: Abdominal Pain - Mid suprapubic, Vomiting, Diarrhea, Nausea. Negative : Other - Negative blood in stool Negative: dysuria, hematuria Positive: Myalgia - Lower back Neurological/Mental Status: Other - Positive dizziness All Other Systems Reviewed And Are Negative: Yes Physical Exam - Summary Physical Exam Summary: Vital Signs Reviewed: Yes A+Ox3, no distress Eyes: Conjunctiva Clear, NIRANJAN. EOM intact and full ENT: Hearing grossly normal TM x 2 clear, mmoist, uvula midline, no exudate, no erythema Neck: Positive: Supple Respiratory: Positive: No respiratory distress, No accessory muscle use + CTA throughout no w/r Cardiovascular: RRR nl s1, s2 no m/r CBT <2 sec abd soft + BS nd no guarding, no distension, mild RLQ pain :> LLQ pain no rebound Musculoskeletal Exam: CHERRY x 4 without difficulty Strength Intact, ROM Intact Neurological: Positive: Alert, + sensation throughout Psychological: Positive: Normal Response To sat math tutor Skin: Positive: no rash, no ecchymosis Triage Information Reviewed: Yes Vital Signs On Initial Exam: Initial Vitals Temp Pulse Resp BP Pulse Ox 99.9 F 102 16 123/69 98 04/23/19 15:06 04/23/19 15:06 04/23/19 15:06 04/23/19 15:06 04/23/19 15:06 Vital Signs Reviewed: Yes Procedures - Sedation Patient Received Moderate/Deep Sedation with Procedure: No Diagnostics - Vital Signs Vital Signs Temp Pulse Resp BP Pulse Ox 04/23/19 15:06 99.9 F 102 16 123/69 98 - Laboratory Result Diagrams: 04/23/19 16:29 04/23/19 16:29 Lab Statement: Any lab studies that have been ordered have been reviewed, and results considered in the medical decision making process. - CT Abdomen/Pelvis CT CT Interpretation Completed By: Radiologist Summary of CT Findings: Abdomen/Pelvis CT IMPRESSION: No obstructive uropathy or evidence of pyelonephritis. No calculi. The bladder appears normal. No significant bowel pathology, which is well opacified with contrast. Normal appendix is visualized. IUD seen within the uterus. Reviewed by Dr. Hernandez. Re-Evaluation - Re-Evaluation First Eval Re-Evaluation Time: 16:53 Change: Improved Comment: At 16:53, patient drank her oral contrast and her pain and nausea are better. Awaiting CT Second Eval Re-Evaluation Time: 18:15 Comment: reviewed CT. will discharge. return precautions discussed. pt comfortable and in agreement with plan Abdominal Pain Fem Course/Dx - Course Course Of Treatment: Pt present with n/v/d and RLQ discomfort no fever chills no urine or vaginal concers. vital reviewed. pt with mild RLQ >LLQ pain - non guarding no rebound. Not toxic appearing. will check labs, urine, , CT. offered analgesia antiemetic. IVF. reasseesmment. Ptcomfortable with plan - Diagnoses Provider Diagnoses: Abdominal pain Discharge ED - Sign-Out/Discharge Documenting (check all that apply): Patient Departure - Discharge - Discharge Plan Condition: Stable Disposition: HOME Prescriptions: Ondansetron ODT TAB* [Zofran 4 MG Odt TAB*] 4 mg PO Q4H PRN #10 tab.odt PRN Reason: Nausea Patient Education Materials: Acute Abdominal Pain (ED) Referrals: [facility] [Outside] [facility]IAN REFERRAL [Outside] Additional Instructions: - Stay well hydrated. Drink plenty of non-alcoholic, non-caffinated beverages - For the first 6 hours, eat and drink clears (water, chad genoveva, soup broth, jello, popsicles, Gatorade). If you tolerate this okay, add bland foods such as dry toast, scrambled eggs, crackers. Wait until you are feeling better for 24 hours before eating spicy food, acidic food, tomato based food, fried food. - Okay to alternate ibuprofen (Advil, Motrin) and Tylenol (acetaminophen) every 3 hours for pain or fever. Take with food. Do NOT take for more than 4-5 days. - Get plenty of restful sleep - Contact your doctor to schedule a follow-up appointment. If you do not have a primary doctor, you have been given the referral number to the physician referral center. This office can help you establish with a primary care provider - If you have increased or uncontrolled pain, vomiting, fever or any other concerns it is recommended you contact your doctor or return to the emergency department - Billing Disposition and Condition Condition: STABLE Disposition: Home - Attestation Statements Document Initiated by Jamie: Yes Documenting Salmaibe: Heydi Acosta Provider For Whom Jamie is Documenting (Include Credential): Kaley Hernandez MD Scribe Attestation: IHeydi, scribed for Kaley Hernandez MD on 05/01/19 at 1951. Scribe Documentation Reviewed: Yes Provider Attestation: The documentation as recorded by the Heydi gould accurately reflects the service I personally performed and the decisions made by me, Kaley Hernandez MD Status of Scribe Document: Viewed
[2019-04-23] MEDS ORDERED: NS 0.9% 1000 ML** 1,000 ML IV SCH (16:00)
[2019-04-23 16:37] LABS: ABS Lymphocytes 0.2 10^3/ul (1.0-4.8); ABS Monocytes 0.2 10^3/ul (0-0.8); ABS Neutrophils 8.1 10^3/ul (1.5-7.7); Hematocrit 41 % (35-47); Hemoglobin 13.7 g/dL (12.0-16.0); Lymphocyte % 2.3 %; Mean Corpuscular HGB Conc 34 g/dL (31-36); Mean Corpuscular Hemoglobin 31 pg (27-31); Mean Corpuscular Volume 92 fL (80-97); Mean Platelet Volume 7.5 fL (7.4-10.4); Platelet Count 236 10^3/uL (150-450); Red Blood Count 4.42 10^6 /uL (3.70-4.87); Red Cell Distribution Width 13 % (10-15); White Blood Count 8.6 10^3/uL (3.5-10.8)
[2019-04-23 16:54] LABS: Albumin 4.6 g/dL (3.2-5.2); Anion Gap 6 mmol/L (2-11); CO2 Carbon Dioxide 25 mmol/L (22-32); Calcium 8.3 mg/dL (8.6-10.3); Chloride 106 mmol/L (101-111); Magnesium 1.9 mg/dL (1.9-2.7); Potassium 3.4 mmol/L (3.5-5.0); Sodium 137 mmol/L (135-145)
[2019-04-23 17:00] LABS: ALT 11 U/L (7-52); AST 15 U/L (13-39); Alkaline Phosphatase 39 U/L (34-104); BUN/Creatinine Ratio 17.7 (8-20); Blood Urea Nitrogen 11 mg/dL (6-24); EGFR African American 137.7 (>60); EGFR Non-African American 113.8 (>60); Globulin 2.3 g/dL (2-4); Glucose 96 mg/dL (70-100); Total Protein 6.9 g/dL (6.4-8.9)
[2019-04-23 17:02] LABS: HCG Pregnancy < 0.60 mIU/mL
[2019-04-23] MEDS ORDERED: Iohexol 300* (CONTRAST) 10 ML SDV IV ONE (17:45)
[2019-04-23 18:53] VITALS: BP 121/76
[2019-04-23 18:57] LABS: Urine Appearance Clear; Urine Bilirubin Negative (Negative); Urine Blood 2+ (Negative); Urine Color Yellow; Urine Glucose Negative (Negative); Urine Ketones 2+ (Negative); Urine Nitrite Negative (Negative); Urine Protein Negative (Negative); Urine Specific Gravity 1.054 (1.010-1.030); Urine Urobilinogen Negative (Negative)
[2019-04-23 19:11] LABS: Urine Bacteria Absent (Absent); Urine Red Blood Cell Absent (Absent); Urine Squamous Epithelial Cell Present (Absent); Urine White Blood Cell Absent (Absent)
== END 2019-04-23 18:51 | disposition home or self-care (01) ==
LOC: ED 15:03
DX: R10.30 Lower abdominal pain, unspecified (principal); F32.9 Major depressive disorder, single episode, unspecified; Z79.899 Other long term (current) drug therapy
CPT/HCPCS: 36415; 74177; 80053; 81003; 81015; 83735; 84702; 85025; 99283; Q9967